=== PATIENT | female | born 1965 | race Caucasian/White ===

== ENCOUNTER 2018-05-01 00:20 | Emergency (ER) | END 2018-05-01 03:43 | disposition home or self-care (01) ==

== ENCOUNTER 2018-08-10 19:16 | Emergency (ER) | END 2018-08-10 21:34 | disposition home or self-care (01) ==

== ENCOUNTER 2019-03-11 23:15 | Emergency (ER) | payer MEDICAID ==
[~2019-03-11] VITALS: Ht 162.6 cm; Wt 76.2 kg
[~2019-03-11 23:15] MED LIST: CEPH-443 PO; CYCL10TA7 PO; HYDR-4011 PO; IBUP-1542 PO; METF-849 PO; PHEN-538 PO; WARF1TAB PO
[2019-03-11 23:19] VITALS: Ht 162.6 cm; Wt 76.2 kg
[2019-03-12] MEDS ORDERED: LIDOCAINE 1% (MDV) 20 ML INJ SC ONE (01:00)
[2019-03-12] MEDS ORDERED: OXYCODONE/ACETAMINOPHEN (5/325) TAB PO ONE (01:00)
[2019-03-12] MEDS ORDERED: LIDOCAINE 4% CR TOP ONE (01:00)
--- NOTE | 2019-03-12 01:22 | ERD ---
ER Documentation Chief Complaint Chief Complaint LEFT SHOULDER PAIN, NO KNWON INJ; NON-RADIATING, TODAY HPI 53 female presents with complaint of painful red mass behind her left shoulder for the past 4 days. States that is been getting bigger and is also been hurting more. last took Tylenol at 6 PM. Denies any fevers, chills. States she is not driving. Denies any allergies. ROS All systems reviewed and are negative except as per history of present illness. Medications Home Meds Active Scripts Hydrocodone/Acetaminophen ([place] 5-325 Tablet) 1 Each Tablet, 1 TAB PO Q6H PRN for PAIN, #15 TAB Prov:NEHA ALBA 03/12/19 Cephalexin* (Keflex*) 500 Mg Capsule, 500 MG PO QID for 7 Days, CAP Prov:NEHA ALBA 03/12/19 Sulfamethoxazole/Trimethoprim* (Bactrim Ds* Tablet) 1 Each Tablet, 1 TAB PO BID, #14 TAB Prov:NEHA ALBA 03/12/19 Phenazopyridine Hcl* (Pyridium*) 200 Mg Tab, 200 MG PO TID PRN for URINARY PAIN, #6 TAB Prov:AUNG GALARZA PA-C 08/10/18 Cephalexin* (Keflex*) 500 Mg Capsule, 500 MG PO BID for 7 Days, CAP Prov:AUNG GALARZA PA-C 08/10/18 Cyclobenzaprine Hcl* (Cyclobenzaprine Hcl*) 10 Mg Tablet, 10 MG PO TID, #15 TAB Prov:BON TOWNSEND NP 05/01/18 Hydrocodone/Acetaminophen ([place] 5-325 Tablet) 1 Each Tablet, 1 TAB PO Q6H PRN for SEVERE PAIN LEVEL 7-10, #20 TAB Prov:BON TOWNSEND NP 05/01/18 Ibuprofen* (Motrin*) 600 Mg Tab, 600 MG PO Q6H PRN for PAIN AND OR ELEVATED TEMP, #30 TAB Prov:BON TOWNSEND NP 05/01/18 Reported Medications Warfarin Sodium* (Coumadin*) 1 Mg Tablet, 1.5 MG PO DAILY, TAB 04/08/14 Metformin* (Glucophage*) 500 Mg Tab, 500 MG PO TID 12/08/12 Allergies Allergies: Coded Allergies: No Known Allergy (Verified , 10/11/18) PMhx/Soc History of Surgery: Yes (Cesarian x1) Anesthesia Reaction: No Hx Neurological Disorder: Yes (CVA X 2) Hx Respiratory Disorders: No Hx Cardiac Disorders: Yes (HTN, HLD) Hx Psychiatric Problems: No Hx Miscellaneous Medical Probl: Yes (DM) Hx Alcohol Use: No Hx Substance Use: No Hx Tobacco Use: No Smoking Status: Never smoker FmHx Family History: No diabetes, No coronary disease, No other Physical Exam Vitals Vital Signs Date Temp Pulse Resp B/P (MAP) Pulse Ox O2 O2 Flow FiO2 Time Delivery Rate 03/12/19 98.7 77 16 155/74 98 Room Air 04:30 (101) 03/11/19 98.7 77 19 173/74 98 23:19 (107) Physical Exam Const: No acute distress Head: Atraumatic Eyes: Normal Conjunctiva ENT: Normal External Ears, Nose and Mouth. Neck: Full range of motion. No meningismus. Resp: Clear to auscultation bilaterally Cardio: Regular rate and rhythm, no murmurs Abd: Soft, non tender, non distended. Normal bowel sounds Skin: Approximately 3 cm round, fluctuant erythematous mass noted to the anterior aspect of left shoulder with tenderness to palpation and no surrounding cellulitis. No lymphatic streaking noted. No draining noted. Back: No midline or flank tenderness Ext: No cyanosis, or edema Neur: Awake and alert Psych: Normal Mood and Affect Results 24 hrs Current Medications Medications Dose Sig/Lizz Start Time Status Last (Trade) Ordered Route PRN Stop Time Admin Dose Reason Admin Oxycodone/ 1 tab ONCE ONCE 03/12/19 DC 03/12/19 Acetaminophen PO 01:00 01:09 (Percocet 03/12/19 01:02 (5/ 325)) Lidocaine 1 applic ONCE ONCE 03/12/19 DC 03/12/19 (Lmx 4% Plus) TOP 01:00 01:09 03/12/19 01:02 Lidocaine 20 ml ONCE ONCE 03/12/19 DC 03/12/19 (Xylocaine SC 01:00 01:09 1% (Mdv) 20 03/12/19 01:02 ml) Procedures/MDM MDM: Abscess Incision and Drainage with irrigation by me: Location: Anterior Left shoulder Anesthesia: Local 1% Lidocaine Technique: Irrigated. Disrupted loculations w/ instrumentation Packing: Gauze. Complications: Neurovascularly intact post procedure 48 hour wound check. Scar minimization instructions given. Abscess was successfully drained using the above technique. Patient placed on Keflex and Bactrim and advised to follow-up in 48 hours for wound check. I have low suspicion for bacteremia, lymphangitis, neurovascular compromise, or any other emergent condition. Patient discharged with strict ER precautions. Patient advised to follow up with PMD. All questions answered at discharge. Departure Diagnosis: Primary Impression: Abscess Condition: Stable NEHA ALBA March 12, 2019 01:22
[2019-03-12] MEDS ORDERED: CEPH-443 PO (04:06)
[2019-03-12] MEDS ORDERED: HYDR-4011 PO (04:06)
[2019-03-12] MEDS ORDERED: SULF1TAB31 PO (04:06)
[2019-03-12 04:30] VITALS: BP 155/74; PULSE 77; RESP 16
== END 2019-03-12 04:32 | disposition home or self-care (01) ==
LOC: FTE 23:15
DX: L02.414 Cutaneous abscess of left upper limb (principal); E11.9 Type 2 diabetes mellitus without complications; I10 Essential (primary) hypertension; Z79.84 Long term (current) use of oral hypoglycemic drugs; Z86.73 Personal history of transient ischemic attack (TIA), and cerebral infarction without residual deficits
CPT/HCPCS: 10060; Z7502; Z7610

== ENCOUNTER 2019-03-13 09:28 | Emergency (ER) | payer MEDICAID ==
[~2019-03-13] VITALS: Wt 79.0 kg
[~2019-03-13 09:28] MED LIST changes: +SULF1TAB31 PO
[2019-03-13 09:31] VITALS: BP 147/65; PULSE 72; RESP 18
--- NOTE | 2019-03-13 12:21 | ERD ---
ER Documentation Chief Complaint Chief Complaint LEFT SHOULDER WOUND CHECK HPI 53-year-old female presenting for wound check of the left shoulder. Patient had incision and drainage performed. She had packing in place. Denies any fevers. Denies other medical problems. NKDA. Surgical history denies. Social history denies ROS All systems reviewed and are negative except as per history of present illness. Medications Home Meds Active Scripts Hydrocodone/Acetaminophen ([place] 5-325 Tablet) 1 Each Tablet, 1 TAB PO Q6H PRN for PAIN, #15 TAB Prov:NEHA ALBA 03/12/19 Cephalexin* (Keflex*) 500 Mg Capsule, 500 MG PO QID for 7 Days, CAP Prov:NEHA ALBA 03/12/19 Sulfamethoxazole/Trimethoprim* (Bactrim Ds* Tablet) 1 Each Tablet, 1 TAB PO BID, #14 TAB Prov:NEHA ALBA 03/12/19 Phenazopyridine Hcl* (Pyridium*) 200 Mg Tab, 200 MG PO TID PRN for URINARY PAIN, #6 TAB Prov:AUNG GALARZA PA-C 08/10/18 Cephalexin* (Keflex*) 500 Mg Capsule, 500 MG PO BID for 7 Days, CAP Prov:AUNG GALARZA PA-C 08/10/18 Cyclobenzaprine Hcl* (Cyclobenzaprine Hcl*) 10 Mg Tablet, 10 MG PO TID, #15 TAB Prov:BON TOWNSEND NP 05/01/18 Hydrocodone/Acetaminophen ([place]ury 5-325 Tablet) 1 Each Tablet, 1 TAB PO Q6H PRN for SEVERE PAIN LEVEL 7-10, #20 TAB Prov:BON TOWNSEND NP 05/01/18 Ibuprofen* (Motrin*) 600 Mg Tab, 600 MG PO Q6H PRN for PAIN AND OR ELEVATED TEMP, #30 TAB Prov:BON TOWNSEND NP 05/01/18 Reported Medications Warfarin Sodium* (Coumadin*) 1 Mg Tablet, 1.5 MG PO DAILY, TAB 04/08/14 Metformin* (Glucophage*) 500 Mg Tab, 500 MG PO TID 12/08/12 Allergies Allergies: Coded Allergies: No Known Allergy (Verified , 08/10/18) PMhx/Soc History of Surgery: Yes (Cesarian x1) Anesthesia Reaction: No Hx Neurological Disorder: Yes (CVA X 2) Hx Respiratory Disorders: No Hx Cardiac Disorders: Yes (HTN, HLD) Hx Psychiatric Problems: No Hx Miscellaneous Medical Probl: Yes (DM) Hx Alcohol Use: No Hx Substance Use: No Hx Tobacco Use: No FmHx Family History: No diabetes, No coronary disease, No other Physical Exam Vitals Vital Signs Date Temp Pulse Resp B/P (MAP) Pulse Ox O2 O2 Flow FiO2 Time Delivery Rate 03/13/19 98.2 72 18 147/65 99 09:31 (92) Physical Exam GENERAL: The patient is well-appearing, well-nourished, in no acute distress CHEST: Clear to auscultation bilaterally. There are no rales, wheezes or rhonchi. HEART: Regular rate and rhythm. No murmurs, clicks, rubs or gallops. NEUROLOGIC: Alert and oriented. Cranial nerves II through XII intact. Motor strength in all 4 extremities with 5 out of 5 strength. Sensation grossly intact. Normal speech and gait. SKIN: I&D site noted to the left shoulder with no surrounding erythema or purulence. No fluctuance. No lymphatic streaking. Procedures/MDM MDM: 53-year-old female presenting with shoulder incision and drainage. I have low suspicion for deep tracking infection. I have low suspicion for sepsis. Patient is placed on antibiotics and can continue taking previously prescribed antibiotics. Patient is discharged with strict ER precautions. Bandages applied the ER. All questions answered at discharge Departure Diagnosis: Primary Impression: Encounter for wound re-check Condition: Stable Patient Instructions: Wound Care Referrals: [facility] YOU HAVE RECEIVED A MEDICAL SCREENING EXAM AND THE RESULTS INDICATE THAT YOU DO NOT HAVE A CONDITION THAT REQUIRES URGENT TREATMENT IN THE EMERGENCY DEPARTMENT. FURTHER EVALUATION AND TREATMENT OF YOUR CONDITION CAN WAIT UNTIL YOU ARE SEEN IN YOUR DOCTORS OFFICE WITHIN THE NEXT 1-2 DAYS. IT IS YOUR RESPONSIBILITY TO MAKE AN APPOINTMENT FOR FOLOW-UP CARE. IF YOU HAVE A PRIMARY DOCTOR --you should call your primary doctor and schedule an appointment IF YOU DO NOT HAVE A PRIMARY DOCTOR YOU CAN CALL OUR PHYSICIAN REFERRAL HOTLINE AT IF YOU CAN NOT AFFORD TO SEE A PHYSICIAN YOU CAN CHOSE FROM THE FOLLOWING [facility] [address] [facility]. [facility] [address] [facility] [facility] [address] [facility] [address] [facility] [address] [facility]. [facility] [address] Additional Instructions: FOLLOW UP WITH YOUR PRIMARY CARE PHYSICIAN TOMORROW.Return to this facility if you are not improving as expected. JOSHUA ALVARES PA-C March 13, 2019 12:21
== END 2019-03-13 11:18 | disposition left against medical advice (07) ==
LOC: FTE 09:28
DX: Z48.01 Encounter for change or removal of surgical wound dressing (principal); I10 Essential (primary) hypertension; E11.9 Type 2 diabetes mellitus without complications; Z79.84 Long term (current) use of oral hypoglycemic drugs; Z86.73 Personal history of transient ischemic attack (TIA), and cerebral infarction without residual deficits
CPT/HCPCS: 99281